=== PATIENT | male | born 1945 | race Caucasian/White ===

== ENCOUNTER 2019-12-31 12:12 | Inpatient (IN) | payer MEDICARE, SELFPAY ==
[2019-12-31] VITALS (9 sets, daily range): BP systolic 108–140; BP diastolic 53–83; PULSE 71–109; RESP 16–20; TEMP 36.1–37.1; O2SAT 94–99; BMI 30.9
--- NOTE | 2019-12-31 | ECG_ITS ---
Measurements Intervals [place] Rate: 95 P: 59 CT: 162 QRS: -58 QRSD: 76 T: 1 QT: 354 QTc: 447 Interpretive Statements SINUS RHYTHM VENTRICULAR PREMATURE COMPLEXES INCOMPLETE RIGHT BUNDLE BRANCH BLOCK DELAYED PRECORDIAL R/S TRANSITION LOW QRS VOLTAGE IN PRECORDIAL LEADS LEFT ANTERIOR FASCICULAR BLOCK BASELINE ARTIFACT- I, II, III, AVF, V5-V6 ABNORMAL ECG Electronically Signed On 12-31-2019 17:14:42 AUTO SERVICE INSTRUCTOR by Silvano Enrique D.O.
--- NOTE | ~2019-12-31 | XR_ITS ---
EXAMINATION: XR chest 2V EXAM DATE: 12/31/2019 12:51 INDICATION: weakness, fall, unresponsive. Lethargy. TECHNIQUE: Frontal and lateral projections of the chest obtained and reviewed. Comparison is made to prior examination from 12/10/2018. FINDINGS: There is mild cardiomegaly. No confluent consolidation, pneumothorax or pleural effusion zafar spected. There are no osseous abnormalities identified. There is no significant interval change. IMPRESSION: No acute cardiopulmonary findings. Reviewed, dictated and finalized at location A. CURE WORKER
--- NOTE | ~2019-12-31 | CT_ITS ---
EXAMINATION: CT brain wo con DATE: 01/01/2020 11:03 INDICATION: Ambulatory dysfunction. Stroke. TECHNIQUE: Computed tomography (CT) of the head was performed without intravenous contrast. The mA wa s adjusted according to patient size. Iterative reconstruction technique was employed. The dose-lengt h product was 605.33 mGy-cm. COMPARISON: Head CT 12/31/2019 FINDINGS: There are scattered areas of low attenuation in the cerebral white matter, which is within normal limits for the patient's age. There is no intracranial hemorrhage, acute infarction, or abnorm al intracranial mass lesion. The ventricles are normal in size. The orbits are normal. There is mild mucosal thickening in the paranasal sinuses. The mastoid air cells are normal. IMPRESSION: 1. Normal aging brain. Reviewed, dictated and finalized at location A. RIOR WIRER IMPRESSION: 1. Normal aging brain.
--- NOTE | ~2019-12-31 | CT_ITS ---
EXAMINATION: CT brain wo con EXAM DATE: 12/31/2019 12:57 INDICATION: Lethargic. TECHNIQUE: Spiral CT of the head was performed without contrast. Axial, coronal and sagittal images were reviewed. The dose-length product (DLP) for this examination was 605.33 mGy-cm. The exposure w as tailored according to patient size, and iterative reconstruction (ASIR) was used as additional dos e reduction technique. There is no prior study for comparison. FINDINGS: There is no acute intraparenchymal hemorrhage. No evidence of intraparenchymal brain mass lesion. No evidence of acute infarction. Please note that initial head CT has limited sensitivity f or small or acute infarctions. There is mild periventricular and subcortical hypodensity, nonspecific but probably related to small vessel ischemic disease. There is moderate prominence of the sulci a nd ventricles related to cerebral atrophy. There is intracranial carotid arteriosclerosis. There a re no extra-axial collections. There is no mass effect or midline shift. The orbits are unremarkabl e. Soft tissue is unremarkable. The visualized sinuses and mastoid air cells are well aerated. IMPRESSION: 1. No acute intracranial findings. 2. Chronic age related findings. Reviewed, dictated and finalized at location A. E CUTTING SUPERVISOR
[2019-12-31 12:25] LABS: Basophils Percent Auto 0.3 % (0.2-1.2); Eosinophils Percent Auto 0.1 % (0-4.4); Hematocrit 50.5 % (42.0-52.0); Hemoglobin 17.8 g/dL (14.0-18.0); Immature Granulocyte Absolute 0.04 K/mm3 (0.00-0.031); Immature Granulocyte Percent A 0.4 % (0-0.5); Lymphocytes Absolute Auto 0.82 K/mm3 (0.9-3.2); Lymphocytes Percent Auto 7.4 % (18.3-44.2); Mean Corpuscular HGB Conc 35.2 g/dl (32-36); Mean Corpuscular Hemoglobin 31.9 pg (26-34); Mean Corpuscular Volume 90.5 fl (80-100); Mean Platelet Volume 10.3 fl (7.4-10.4); Monocytes Absolute Auto 0.7 K/mm3 (0.1-0.6); Monocytes Percent Auto 6.1 % (2.6-8.5); Neutrophils Absolute Auto 9.6 K/mm3 (1.3-6.7); Neutrophils Percent Auto 85.7 % (45.5-73.1); Platelet Count Result 211 k/mm3 (150-375); Red Blood Count 5.58 M/mm3 (4.6-6.20); Red Cell Distribution Width 12.8 % (11.5-14.5); White Blood Count 11.2 K/mm3 (4.5-10.0)
[2019-12-31 12:43] LABS: Alanine Aminotransferase 26 U/L (4-50); Albumin Level 4.2 g/dL (3.5-5.1); Alkaline Phosphatase 63 U/L (38-126); Anion Gap 13 mmol/L (8-16); Aspartate Amino Transferase 36 U/L (17-59); Bilirubin,Total 2.3 mg/dL (0.2-1.3); Blood Urea Nitrogen 22 mg/dL (9-20); Calcium 9.6 mg/dL (8.4-10.2); Carbon Dioxide 23 mmol/L (22-30); Chloride 104 mmol/L (98-107); Estimated CRCL calculation 50 ml/min; Estimated Glomerular Filt Rate 59; Glucose 120 mg/dL (75-110); Potassium 4.4 mmol/L (3.4-5.0); Sodium 140 mmol/L (137-145)
--- NOTE | 2019-12-31 12:43 | ED.GENADULT ---
HPI - General Adult General Chief complaint: Weakness Stated complaint: lethargic Time Seen by Provider: 12/31/19 12:15 Source: family and EMS Mode of arrival: EMS Limitations: altered mental status and dementia History of Present Illness HPI narrative: 74 years old white male brought to the emergency room by his because of progressive increase of weakness and lethargy and longer hours of sleep over the last few days. This morning patient was not able to get out of bed without document control assistant, went down to the floor slowly, could not pick him up, called 911, was placed on a chair, few hours later patient had similar symptoms and could not get him of the floor. Patient normally have difficulty walking and moving, but today is worse. Patient have history of Alzheimer's, lives at home with his . Patient is DNR. Related Data Allergies Allergy/AdvReac Type Severity Reaction Status Date / Time No Known Allergies Allergy Unverified 08/09/18 09:20 Review of Systems Review of Systems: ROS unobtainable: Yes unobtainable due to mental status PMFSH Past Medical History Medical History (Updated 12/31/19 @ 13:36 by Kole Coon MD) Alzheimer disease Social History Social History (Updated 12/31/19 @ 12:45 by Kole Coon MD) Social History: Patient does not smoke or drink or uses drugs Second hand tobacco smoke exposure: No Exam Narrative: Exam Narrative: General appearance: Well-developed, well-nourished, at the bedside, lethargic, sleepy, responsive to painful stimulation Skin: Normal color Head: Normocephalic, nontraumatic Eyes: Clear conjunctiva ENT: Oropharynx normal, ears normal, nose normal Neck: Supple, nontender Chest and respiratory: Airway patent, no respiratory distress, no accessory muscle use Heart: Regular rate/rhythm Abdomen: Soft, nontender, no organomegaly, quiet bowel sounds Vascular: Normal peripheral pulses, normal capillary refill. Neurologic: Sleepy, responsive to painful stimulation Course Course Emergency Course: Stable Vital Signs Vital signs: Vital Signs Temperature 37.1 C 12/31/19 12:11 Pulse Rate 109 H 12/31/19 12:11 Respiratory Rate 17 12/31/19 12:11 Blood Pressure 128/83 12/31/19 12:11 Pulse Oximetry 96 12/31/19 12:11 Temperature 37.1 C 12/31/19 12:11 Pulse Rate 107 H 12/31/19 12:16 Respiratory Rate 17 12/31/19 12:11 Blood Pressure 128/83 12/31/19 12:11 Pulse Oximetry 96 12/31/19 12:11 Medical Decision Making MDM Narrative Medical decision making narrative: Patient presents with general weakness. Sepsis, electrolyte imbalance, progression of Alzheimer are my concern. Labs, UA, chest x-ray, CT head, blood culture ordered. Further plan to follow Differential Diagnosis Differential Diagnosis: Sepsis, electrolyte imbalance, UTI, pneumonia Vital Signs Vital Signs: Vital Signs Temperature 37.1 C 12/31/19 12:11 Pulse Rate 109 H 12/31/19 12:11 Respiratory Rate 17 12/31/19 12:11 Blood Pressure 128/83 12/31/19 12:11 Pulse Oximetry 96 12/31/19 12:11 Temperature 37.1 C 12/31/19 12:11 Pulse Rate 107 H 12/31/19 12:16 Respiratory Rate 17 12/31/19 12:11 Blood Pressure 128/83 12/31/19 12:11 Pulse Oximetry 96 12/31/19 12:11 Lab Data Result diagrams: 12/31/19 12:18 12/31/19 12:18 Labs: Lab Results 12/31/19 12/31/19 Range/Units 12:18 12:18 WBC 11.2 H (4.5-10.0) K/mm3 RBC 5.58 (4.6-6.20) M/mm3 Hgb 17.8 (14.0-18.0) g/dL Hct 50.5 (42.0-52.0) % MCV 90.5 (80-100) fl MCH 31.9 (26-34) pg MCHC 35.2 (32-36) g/dl RDW 12.8 (11.5-14.5) % Plt Count 211
[2019-12-31 13:42] LABS: Add Urine Microscopic? YES; Appearance Urine Clear (Clear); Bilirubin Urine Negative (Negative); Blood Urine 1+ (Negative); Color Urine Yellow (Yellow); Glucose Urine UA Negative (Negative); Ketones Urine Trace mg/dL (Negative); Leukocyte Esterase Ur Negative LEU/UL (Negative); Mucus Urine Few /lpf; Nitrate Urine Negative (Negative); Protein Urine 1+ mg/dL (Negative); RBC Urine 0-2 /hpf (0-2); Specific Grav Ur 1.029 (1.001-1.035); WBC Urine 0-3 /hpf
[2019-12-31 13:48] LABS: CRP 0.5 mg/dL (<1.0)
--- NOTE | 2019-12-31 14:39 | PC.NURSE ---
collected two sets of blood cult. (LAC & RAC), and lactic at 1409. Printed labels from [employer] and sent to lab with uname on them.
[2019-12-31 15:00] LABS: Lactic Acid Reflex 1.6 mmol/L (0.7-2.1)
--- NOTE | 2019-12-31 15:45 | PC.NURSE ---
This patient, Braxton Mendoza, was admitted to Medical Room 345-01. Patient/family oriented to hospital policies and general routines including ID bracelet, bed and alarms, visiting hours, pain management, procedures, bathroom and other care routines, personal items, smoking policy, room service/diet, and visiting hours. Information on how to activate the Rapid Response Team has been discussed. Patient/Family are encouraged to report perceived risks to care and to ask questions if they do not understand what they are told or what they should do.
[2019-12-31] MEDS: SODIUM CHLORIDE 0.9% IV 1,000 ML 125 ML IV CONT (16:00)
--- NOTE | 2019-12-31 16:58 | PM.IMHP ---
H&P: HPI History of Present Illness Date/Time: 12/31/19 16:58 Chief complaint: Decerease level of consciousness, Weakness Narrative: Braxton Mendoza is a 74 year old male with a history of Alzheimer dementia diagnosed in 2014. Was treated with donepezil and memantine up until about 2 weeks ago. Denepezil was causing chronic diarrhea and worsening fecal incontinence. It was discontinued about 2 weeks ago. Diarrhea improved. One week ago the patient began having increased difficulty getting out of a chair. Once he was up he was able to ambulate very slowly with small steps. He has also had increased myoclonic jerks during the past week. This morning his tried to help moderate bed and he went to his knees. She could not get him up so summoned EMS for assistance. Later in the morning he again slumped to his knees as she was trying to assist him in transferring. This time she summoned EMS to have him brought to the hospital for evaluation. Since his diagnosis of Alzheimer dementia 5 years ago he has had progressive short-term memory issues. Over the last 6-12 months he has become increasingly incontinent of urine and stool. His gait has become slower with smaller steps. He speaks only a few words today, some days saying only thank you . He has no difficulty with chewing or swallowing. He requires assistance with all activities of daily living including set up for feeding. He does not use utensils. He eats finger foods. He does have a history of seizures since onset of Alzheimer's. These have been control with Keppra. He never complains of pain. His spouse is noted no bleeding. He has not had a fever. He has not traveled or been outside the home or been exposed to any ill individuals. Review of Systems Review of Systems: ROS unobtainable: Yes unobtainable due to medical condition PMFSH Past Medical History Medical History (Updated 12/31/19 @ 17:20 by Rosales Boucher MD) Alzheimer disease H/O prostate cancer Seizure disorder Surgical History Surgical History (Updated 12/31/19 @ 17:04 by Rosales Boucher MD) H/O radical prostatectomy for cancer Family History Family History Mother Depression Father Dementia Social History Social History (Updated 12/31/19 @ 17:05 by Rosales Boucher MD) Social History: Lives with his who is his power of deputy county attorney and wishes that he be DNR. Smoking status: Former smoker Second hand tobacco smoke exposure: No Smoking end date: 06/11/99 Alcohol intake: former Substance use: never Substance use type: does not use Living arrangements: with family Occupation/Education: retired Spiritual care concerns: No Meds Home Medications and Allergies Home Medications Medication Instructions Recorded Confirmed Type levetiracetam 500 mg PO BID 12/31/19 12/31/19 History memantine 28 mg PO HS 12/31/19 12/31/19 History Allergies Allergy/AdvReac Type Severity Reaction Status Date / Time No Known Allergies Allergy Verified 12/31/19 15:51 Vital Signs Vital Signs - 24 hr 12/31/19 12:11 12/31/19 12:16 12/31/19 13:10 Temperature 98.7 F Pulse Rate 109 H 107 H 80 Respiratory Rate 17 16 Blood Pressure 128/83 124/78 Pulse Oximetry 96 97 12/31/19 13:41 12/31/19 14:46 12/31/19 15:50 Temperature 97 F L Pulse Rate 78 71 101 H Respiratory Rate 16 16 20 Blood Pressure 108/72 111/77 140/76 Pulse Oximetry 97 98 99 12/31/19 15:51 Temperature 97 F L Pulse Rate 101 H Respiratory Rate 20 Blood Pressure 140/76 Pulse Oximetry 99 Exam Narrative: Exam Narrative: HEENT: PERRL, sclerae nonicteric, pharyngeal mucosa pink and intact NECK: No JVD, adenopathy, or thyromegaly CHEST: Clear to auscultation. Normal effort. HEART: NL S1/S2, regular, no murmur ABDOMEN: BS+, soft, nontender, no mass, no bruits EXTREMITIES: No cyanosis, edema, or clubbing NEUROLOGIC: CN intact a
[2019-12-31 18:00] LABS: Basophils Percent Auto 0.3 % (0.2-1.2); Eosinophils Percent Auto 0.3 % (0-4.4); Hematocrit 49.2 % (42.0-52.0); Hemoglobin 16.9 g/dL (14.0-18.0); Immature Granulocyte Absolute 0.03 K/mm3 (0.00-0.031); Immature Granulocyte Percent A 0.3 % (0-0.5); Lymphocytes Absolute Auto 1.68 K/mm3 (0.9-3.2); Lymphocytes Percent Auto 18.6 % (18.3-44.2); Mean Corpuscular HGB Conc 34.3 g/dl (32-36); Mean Corpuscular Hemoglobin 31.4 pg (26-34); Mean Corpuscular Volume 91.4 fl (80-100); Mean Platelet Volume 10.3 fl (7.4-10.4); Monocytes Absolute Auto 0.9 K/mm3 (0.1-0.6); Monocytes Percent Auto 9.4 % (2.6-8.5); Neutrophils Absolute Auto 6.4 K/mm3 (1.3-6.7); Neutrophils Percent Auto 71.1 % (45.5-73.1); Platelet Count Result 185 k/mm3 (150-375); Red Blood Count 5.38 M/mm3 (4.6-6.20); Red Cell Distribution Width 12.9 % (11.5-14.5)
[2019-12-31 18:10] LABS: INR 0.9; Partial Thromboplastin Time 26.4 SECONDS (22.3-36.8)
[2019-12-31] MEDS: MEMANTINE HCL XR 28 MG CAP PO (20:34)
[2019-12-31] MEDS: levETIRAcetam 500 MG TABLET PO (20:34)
[2020-01-01] MEDS: SODIUM CHLORIDE 0.9% IV 1,000 ML 125 ML IV CONT ×3 (01:40→18:29)
[2020-01-01 04:37] VITALS: BP 100/62; PULSE 80; RESP 17; TEMP 36.1; O2SAT 96
[2020-01-01 08:29] VITALS: BP 109/66; PULSE 81; RESP 16; TEMP 36; O2SAT 100
[2020-01-01] MEDS: levETIRAcetam 500 MG TABLET PO ×2 (09:59→20:08)
[2020-01-01 14:27] VITALS: BP 95/67; PULSE 71; RESP 16; TEMP 36.5; O2SAT 97
--- NOTE | 2020-01-01 15:34 | PM.IMPN ---
Progress Note: A&P Assessment and Plan (1) Advanced dementia: Code(s): F03.90 - Unspecified dementia without behavioral disturbance Status: Acute Assessment and Plan: Hospice consulted. (2) Hyperbilirubinemia: Code(s): E80.6 - Other disorders of bilirubin metabolism Status: Acute Assessment and Plan: Likely secondary to dehydration Continue iv fluids. (3) Seizure disorder: Code(s): G40.909 - Epilepsy, unspecified, not intractable, without status epilepticus Status: Acute Assessment and Plan: Stable Continue home meds (4) Weakness: Code(s): R53.1 - Weakness Status: Acute Assessment and Plan: PT/OT consulted Suspect deconditioning. (5) Unable to ambulate: Code(s): R26.2 - Difficulty in walking, not elsewhere classified Status: Acute Assessment and Plan: Suspect deconditioning. Advanced Dementia Subjective Date/time seen: 01/01/20 15:34 Non verbal Review of Systems Review of Systems: Narrative: Unable to get as patient has advanced Dementia. Exam Narrative: Exam Narrative: Sitting in bed. Const: General: healthy appearing, comfortable and other (Pleasantly demented) Nutritional Appearance: average body habitus Other: Unable to assess as patient with advanced Dementia HENMT: Head: normal to inspection and normocephalic Ears: hearing grossly normal bilaterally General nose exam: Normal external nose present Face and sinus: normal facial exam Eyes: General: appearance normal, both eyes and all related structures Pupils: Equal, round and reactive pupils present EOM: EOMs intact bilaterally Neck: Neck: normal visual inspection, full ROM, no lymphadenopathy and supple Resp: Effort & Inspection: normal respiratory effort Auscultation: clear to auscultation bilaterally Cardio: Jugular venous distension: no JVD Rate: regular rate Rhythm: regular rhythm GI: Inspection: normal to inspection GI Palp: Yes Soft to palpation and Yes No hepatosplenomegaly present Skin: General skin exam: normal color Neuro: General: CN's II-XI intact bilaterally Cranial nerves: Yes CN's II-XII intact bilaterally and Yes Bilaterally intact EOM present Cognition (Neuro): abnormal cognition (Advanced dementia.) Extrem: General: no pedal edema Objective Data Vital Signs Vital Signs: Vital Signs - 24 hr 12/31/19 15:50 12/31/19 15:51 12/31/19 20:43 Temperature 97 F L 97 F L 97.5 F L Pulse Rate 101 H 101 H 89 Respiratory Rate 20 20 16 Blood Pressure 140/76 140/76 130/76 Pulse Oximetry 99 99 94 12/31/19 23:57 01/01/20 04:37 01/01/20 08:29 Temperature 97 F L 97 F L 96.8 F L Pulse Rate 90 80 81 Respiratory Rate 16 17 16 Blood Pressure 108/53 L 100/62 109/66 Pulse Oximetry 99 96 100 01/01/20 14:27 Temperature 97.7 F Pulse Rate 71 Respiratory Rate 16 Blood Pressure 95/67 L Pulse Oximetry 97 Intake/Output Intake/Output: Intake & Output 12/29/19 12/30/19 12/31/19 01/01/20 23:59 23:59 23:59 23:59 Intake Total 820 2480 Balance 820 2480 Meds/Results Medications: Active Medications Generic Name Dose Route Start Last Admin Trade Name Freq PRN Reason Stop Dose Admin Acetaminophen 1,000 mg 12/31/19 17:15 Acetaminophen 500 Mg Tablet PO Q6H PRN Mild Pain (1-3) or Fever Sodium Chloride 1,000 mls @ 125 mls/hr 12/31/19 14:00 01/01/20 09:58 Normal Saline Iv IV CONT 125 mls/hr .Q8H TORIE Administration Levetiracetam 500 mg 12/31/19 21:00 01/01/20 09:59 Levetiracetam 500 Mg Tablet PO 500 mg Q12HR TORIE Administration Memantine 28 mg 12/31/19 21:00 12/31/19 20:34 Memantine Hcl Xr 28 Mg Cap PO 28 mg HS TORIE Administration Radiology Results: ITS Impressions Chest X-Ray 12/31/19 13:01 IMPRESSION: No acute cardiopulmonary findings. Head CT 01/01/20 11:07 IMPRESSION: 1. Normal aging brain. Labs Labs: Laboratory Results - last 24 hr
[2020-01-01 20:04] VITALS: BP 137/41; PULSE 89; RESP 17; TEMP 36.9; O2SAT 96
[2020-01-01] MEDS: MEMANTINE HCL XR 28 MG CAP PO (20:08)
[2020-01-02] MEDS: SODIUM CHLORIDE 0.9% IV 1,000 ML 125 ML IV CONT ×3 (02:30→19:00)
[2020-01-02 04:57] VITALS: BP 117/62; PULSE 86; RESP 17; TEMP 36.1; O2SAT 96
[2020-01-02] MEDS: levETIRAcetam 500 MG TABLET PO ×2 (09:30→22:00)
[2020-01-02 13:09] VITALS: BMI 11.0
[2020-01-02 13:10] VITALS: BMI 11.0
[2020-01-02 14:00] VITALS: BP 134/67; PULSE 86; RESP 18; TEMP 36.9; O2SAT 99
--- NOTE | 2020-01-02 16:29 | PM.IMPN ---
Progress Note: A&P Assessment and Plan (1) Advanced dementia: Code(s): F03.90 - Unspecified dementia without behavioral disturbance Status: Acute Assessment and Plan: Discussed with , plan for discharge with hospice tomorrow. Patient diagnosed with Alzheimer's, this would be progression of Alzheimer's dementia, however he does have muscle rigidity and may have Parkinson's dementia. does not know of any Parkinson's history, and at this time any Parkinson's medications would have no effect as his the dementia has progressed. Also goals of care are for hospice and no more workup is indicated (2) Hyperbilirubinemia: Code(s): E80.6 - Other disorders of bilirubin metabolism Status: Acute Assessment and Plan: No need to trend, goals of care hospice (3) Seizure disorder: Code(s): G40.909 - Epilepsy, unspecified, not intractable, without status epilepticus Status: Acute Assessment and Plan: Stable Continue home meds (4) Weakness: Code(s): R53.1 - Weakness Status: Acute Assessment and Plan: PT/OT consulted however patient is not able to cooperate due to dementia (5) Unable to ambulate: Code(s): R26.2 - Difficulty in walking, not elsewhere classified Status: Acute Assessment and Plan: Advanced Dementia Subjective Date/time seen: 01/02/20 16:29 Patient examined. Patient is nonverbal and lying comfortably in bed. Patient is appears to be bedbound did not working with physical therapy. I discussed goals of care with bedside who understands this is progression of dementia. She would like to take patient home tomorrow on hospice, she believes she has all the help she needs at home, may need home health. Patient had been declining over the last 5 years, nonverbal since last 9 months. is ready for hospice and does not want any more workup. Plan to discharge tomorrow with hospice. Review of Systems Review of Systems: ROS unobtainable: Yes unobtainable due to mental status Exam Narrative: Exam Narrative: - GENERAL: Male laying in bed calmly in no acute distress. Nonverbal, not following commands. - EYES: Anicteric - LUNGS: Clear to auscultation bilaterally. Nonlabored respirations - CARDIOVASCULAR: Regular rate and rhythm. - ABDOMEN: Soft, non-tender and non-distended. - EXTREMITIES: No edema. Peripheral pulses 2+. Non-tender. There is a lot of muscle rigidity throughout - NEUROLOGIC: Unable to examine due to dementia - PSYCHIATRIC: Awake, flat affect. Unable to examine to dementia - SKIN: No rashes or lesions. Warm. Objective Data Vital Signs Vital Signs: Vital Signs - 24 hr 01/01/20 20:04 01/02/20 04:57 01/02/20 14:00 Temperature 36.9 C 36.1 C L 36.9 C Pulse Rate 89 86 86 Respiratory Rate 17 17 18 Blood Pressure 137/41 L 117/62 134/67 Pulse Oximetry 96 96 99 Intake/Output Intake/Output: Intake & Output 12/30/19 12/31/19 01/01/20 01/02/20 23:59 23:59 23:59 23:59 Intake Total 820 3720 2410 Balance 820 3720 2410 Meds/Results Medications: Active Medications Generic Name Dose Route Start Last Admin Trade Name Freq PRN Reason Stop Dose Admin Acetaminophen 1,000 mg 12/31/19 17:15 Acetaminophen 500 Mg Tablet PO Q6H PRN Mild Pain (1-3) or Fever Sodium Chloride 1,000 mls @ 125 mls/hr 12/31/19 14:00 01/02/20 10:58 Normal Saline Iv IV CONT 125 mls/hr .Q8H TORIE Administration Levetiracetam 500 mg 12/31/19 21:00 01/02/20 09:30 Levetiracetam 500 Mg Tablet PO 500 mg Q12HR TORIE Administration Memantine 28 mg 12/31/19 21:00 01/01/20 20:08 Memantine Hcl Xr 28 Mg Cap PO 28 mg HS TORIE Administration Radiology Results: ITS Impressions Chest X-Ray 12/31/19 13:01 IMPRESSION: No acute cardiopulmonary findings. Head CT 01/01/20 11:07 IMPRESSION: 1. Normal aging brain.
[2020-01-02 21:01] VITALS: BP 120/61; PULSE 80; RESP 16; TEMP 36.9; O2SAT 96
[2020-01-02] MEDS: MEMANTINE HCL XR 28 MG CAP PO (22:00)
[2020-01-03] MEDS: SODIUM CHLORIDE 0.9% IV 1,000 ML 125 ML IV CONT (03:06)
[2020-01-03 06:00] VITALS: BP 111/71; PULSE 68; RESP 14; TEMP 36; O2SAT 97
[2020-01-03 08:00] VITALS: BP 113/66; PULSE 79; RESP 16; TEMP 36.1; O2SAT 99
[2020-01-03] MEDS: levETIRAcetam 500 MG TABLET PO ×2 (08:40→21:42)
--- NOTE | 2020-01-03 10:01 | P.DS_ITS ---
DS: Admitting Diagnosis Admitting Diagnosis Admitting Diagnosis: Decerease level of consciousness, Weakness DS: Discharge Diagnosis Discharge Diagnosis (1) Advanced dementia: Code(s): F03.90 - Unspecified dementia without behavioral disturbance Status: Acute Assessment and Plan: Discussed with , plan for discharge with hospice today. Patient diagnosed with Alzheimer's, this would be progression of Alzheimer's dementia, however he does have muscle rigidity and may have Parkinson's dementia, either way this is end-stage dementia. (2) Hyperbilirubinemia: Code(s): E80.6 - Other disorders of bilirubin metabolism Status: Acute Assessment and Plan: No need to trend, goals of care hospice (3) Seizure disorder: Code(s): G40.909 - Epilepsy, unspecified, not intractable, without status epilepticus Status: Acute Assessment and Plan: Can continue home med (4) Weakness: Code(s): R53.1 - Weakness Status: Acute Assessment and Plan: PT/OT consulted however patient is not able to cooperate due to dementia (5) Unable to ambulate: Code(s): R26.2 - Difficulty in walking, not elsewhere classified Status: Acute Assessment and Plan: Advanced Dementia DS: Summary Time Spent with Patient Time attestation: Total time spent providing and/or coordinating discharge services:35 Exam Narrative: Exam Narrative: - GENERAL: Male laying in bed calmly in no acute distress. Nonverbal, not following commands. - EYES: Anicteric - LUNGS: Clear to auscultation bilaterally. Nonlabored respirations - CARDIOVASCULAR: Regular rate and rhythm. - ABDOMEN: Soft, non-tender and non-distended. - EXTREMITIES: No edema. Peripheral pulses 2+. Non-tender. There is a lot of muscle rigidity throughout - NEUROLOGIC: Unable to examine due to dementia - PSYCHIATRIC: Awake, flat affect. Unable to examine to dementia - SKIN: No rashes or lesions. Warm. DS: Data Data Completed and Pending Labs on day of discharge: Preliminary micro results at discharge 12/31/19 14:09 Blood Culture - Preliminary Blood 12/31/19 14:09 Blood Culture - Preliminary Blood Discharge Plan Discharge Attending physician on discharge: Rodger Ny Discharging Clinician: Rodger Ny Anticipated Discharge Date/Time: 01/03/20 12:00 Patient Disposition: Hospice - Home Activity: as tolerated Diet: as tolerated Discharge Instructions: Please follow-up with [facility] hospice for further management of hospice needs. Patient Language: Kittitian Stand Alone Forms: General Discharge Information Follow-up/Referrals: Rodger Ny DO [Physician] - Discharge Medications: Continued levetiracetam 500 mg Tablet 500 mg PO BID RF: 0 memantine 28 mg Capsule,Sprinkle,Er 24hr 28 mg PO HS RF: 0 Date of admission: 12/31/19 13:58 Primary Care Provider: PHYSICIAN,RETAIL PERFORMANCE SPECIALIST Admitting Provider: Kar Garcia Attending physician on admission: Kar Garcia Condition: Stable
[2020-01-03 14:00] VITALS: BP 154/92; PULSE 78; RESP 16; TEMP 36.2; O2SAT 97
[2020-01-03 20:30] VITALS: BP 154/72; PULSE 79; RESP 20; TEMP 36.4; O2SAT 99
[2020-01-03] MEDS: MEMANTINE HCL XR 28 MG CAP PO (21:42)
--- NOTE | 2020-01-04 00:23 | PC.NURSE ---
0010 [facility] HERE TO TRANSPORT PT HOME. HOSPICE NURSE NOTIFIED OF STATIONARY STEAM ENGINEER. CALL OUT TO CHARIS[facility] () TO INFORM OF TRANSPORT.
== END 2020-01-04 00:20 | disposition hospice, home (50) | DRG 57 ==
LOC: ANHED 13:36 → ANH3MED 23:28
PROVIDERS: Emergency Medicine; Admitting Provider Family Medicine; Emergency Provider Emergency Medicine; Visit Provider Student in an Organized Health Care Education/Training Program
DX: G30.1 Alzheimer's disease with late onset (principal); F02.80 Dementia in other diseases classified elsewhere, unspecified severity, without behavioral disturbance, psychotic disturbance, mood disturbance, and anxiety; G20 Parkinson's disease; G40.909 Epilepsy, unspecified, not intractable, without status epilepticus; E80.6 Other disorders of bilirubin metabolism; Z85.46 Personal history of malignant neoplasm of prostate; Z87.891 Personal history of nicotine dependence
CPT/HCPCS: 36415; 70450; 71046; 80053; 81001; 83605; 85025; 85610; 85730; 86140; 87040; 93005; 97161; 97166; 99285; A9270; J7030